=== PATIENT | female | born 1960 | race Two or more races ===

== ENCOUNTER 2025-05-16 06:12 | Inpatient (IN) | payer OTHER, MEDICAID ==
[~2025-05-16] VITALS: Ht 170.2 cm; Wt 100.4 kg
[2025-05-16] VITALS (8 sets, daily range): BP systolic 119–136; BP diastolic 55–77; PULSE 54–87; RESP 18; TEMP 97.3–97.9; O2SAT 97–100
[~2025-05-16 06:12] MED LIST: PERCOT PO
[2025-05-16] MEDS ORDERED: ceFAZolin 2 GM/D5W50ml 50 ML IV ONE (06:29)
[2025-05-16] MEDS ORDERED: VANCOMYCIN HCL 1000 MG VL ONE (06:40)
[2025-05-16] MEDS ORDERED: TRANEXAMIC ACID 20 ML ONE (06:40)
[2025-05-16] MEDS: GABAPENTIN 300 MG CAP PO ONE (07:00)
[2025-05-16] MEDS: ACETAMINOPHEN IV 1000 MG/100ML (10MG/ML) IV ONE (07:00)
[2025-05-16] MEDS: CELECOXIB 100 MG CAP PO ONE (07:00)
[2025-05-16] MEDS ORDERED: CEFEPIME 1GM/ 50ML 50 ML IV ONE (07:00)
[2025-05-16] MEDS ORDERED: PROPOFOL 10 MG/ML 20 ML IV ONE ×3 (07:04→08:32)
[2025-05-16] MEDS ORDERED: GLYCOPYRROLATE 0.2 MG/ML 1ML VIAL ONE ×2 (07:04→08:23)
[2025-05-16] MEDS ORDERED: KETOROLAC TROMETH 30 MG/ML 1ML VIAL ONE (07:05)
[2025-05-16] MEDS ORDERED: LIDOCAINE 1% INJ PF 5ML AMP ONE (07:05)
[2025-05-16] MEDS ORDERED: DexAMETHasone SOD PHOS 10MG/1ML VIAL INJ ONE ×2 (07:05→08:13)
[2025-05-16] MEDS ORDERED: ONDANSETRON HCL 4 MG/2 ML VIAL ONE (07:05)
[2025-05-16] MEDS ORDERED: KETAMINE 50mg/ML 1ml syringe ONE (07:06)
[2025-05-16] MEDS ORDERED: fentaNYL CITRATE 100 MCG/2 ML VL ONE (07:06)
[2025-05-16] MEDS ORDERED: BUPIVACAINE HCL 50 ML ONE (07:09)
[2025-05-16] MEDS ORDERED: ePHEDrine SULFATE 50 MG/ML AMP ONE (07:51)
[2025-05-16] MEDS ORDERED: EPINEPHrine HCL 1 MG/1 ML AMP ONE (08:13)
--- NOTE | 2025-05-16 09:31 | DVHOP2 ---
Operative Report - 2 Report Details Date: 05/16/25 Preop Diagnosis: Left hip degenerative arthritis Postop Diagnosis: Left hip degenerative arthritis Surgeon: Edin Villatoro MD Party Plan Sales Director: Samia KARIMI Anesthesiologist: Seferino Vazquez CRNA Anesthesia: Regional Drains: Piero closed wound suction Implant: Donjoy luisa stem size three, 0 neck length with 32 ceramic head, 48 whit acetabular shell with flat polyethylene liner Consent: The patient was informed of the risks and benefits of the procedure. These incl ude but are not limited to complications of anesthesia, postoperative infection, incomplete relief of symptoms, recurrence of symptoms, damage to blood vessels, nerves and tendons, deep venous thrombosis, pulmonary embolism and possible need for repeat surgery in the future. Complications: None Estimated Blood Loss: 75 cc Fluids: See anesthesia record Findings: Left hip with osteophytes, denuded cartilage and eburnated bone Indications for Surgery: Left hip degenerative arthritis with severe pain and functional impairment despite nonoperative management Name of Procedure Performed Left total hip arthroplasty Procedure Details Procedure Details: The patient was brought to the operating room and given spinal anesthetic with adequate analgesia obtained. The patient was positioned lateral decubitus with the operative side up, stabilized with hip positioners. Axillary roll applied and lower extremities well-padded. Preop patient received IV Ancef, cefepime and IV tranexamic acid. Surgical timeout was performed verifying patient, laterality and procedure. The hip and lower extremity were prepped and draped in sterile fashion. Incision was made over the greater trochanter. Subcutaneous dissection and hemostasis were performed with Bovie and aqua mantis. I identified the fascia which was incised with Bovie and Charnley retractor inserted. I identified the gluteus medius that was split at the junction of its anterior and middle thirds with Bovie then incised off the anterior greater trochanter. I incised the anterior gluteus minimus which was elevated off the capsule. I elevated the reflected head of the rectus. I then performed anterior capsulectomy with Bovie. I extended capsular incision posterior medially and superior laterally. The head was dislocated. Femoral neck cut was made with saw and head removed. Head diameter was calipered on the back table. I adjusted retractors to expose the acetabulum. I circumferentially removed labral tissue with Bovie. I removed foveal tissue with Bovie, curette and rongeur. I then began reaming sequentially paying attention to inclination and version as I went. I trialed which was stable so acetabular implant was brought into the field and tapped into the acetabulum with good fixation achieved. I inserted the central screw. There was quite a bit of inferior and anterior osteophytes which I removed with curved osteotome and rongeur. I then brought up the flat liner which was spun to make sure there was no soft tissue entrapment then tapped in and stability verified. I then brought my attention to the proximal femur. The leg was placed in the sterile bag anteriorly. I cleaned up soft tissue at the greater trochanter shoulder with Bovie. I then used a rongeur to clip the lateral neck. I then used a box osteotome, canal finder and lateralizing rasp. I sequentially broached to size 3. I revised the femoral neck cut with calcar planer. I trialed with a [0] neck length and 32 head which was stable. Intraoperative AP pelvis x-ray was obtained to verify length, offset and implant size. The hip did look long on x- ray. Acetabular cup looked good. The hip was dislocated. Neck and head trial removed. Broach was removed. I then brought up the 2. Broach and tapped it down and again revise femoral neck cut with calcar planer. I trialed and the hip was now stable with a 0 neck length but not the minus four. Broach was removed I tapped in the femoral implant with good fixation achieved. I cleaned and dried the Mcdaniel taper and tapped on the 0 neck length ceramic head. The hip was again reduced and tested for stability which was good. I irrigated with biourge. I placed a 2 grams of vancomycin in the deep and superficial wound. I repaired the minimus and medius to the anterior greater trochanter with #[5] FiberWire in running fashion . I oversewed the repair with 0 Vicryl. I repaired the fascia with #1 Ethibond interrupted [id number]. Deep subcutaneous tissue was closed with 0 Vicryl. Superficial subcutaneous tissue was closed with 2-0 Vicryl. The skin was closed with janet. I then applied the Piero closed wound suction. Patient tolerated the procedure well and was brought to the recovery room in stable condition. Condition Stable Disposition Still a Patient EDIN VILLATORO MD May 16, 2025 09:31
[2025-05-16] MEDS ORDERED: ONDANSETRON HCL 4 MG/2 ML VIAL IV PRN (09:45)
[2025-05-16] MEDS ORDERED: ONDANSETRON HCL 4 MG/2 ML VIAL IV ONE (09:45)
[2025-05-16] MEDS ORDERED: HYDROmorphone HCL 2 MG/ML VL/or syr IV PRN (09:45)
[2025-05-16] MEDS ORDERED: fentaNYL CITRATE 100 MCG/2 ML VL IV PRN (09:45)
[2025-05-16] MEDS ORDERED: hydrALAZINE HCL 20 MG/ML VL IV PRN (09:45)
[2025-05-16] MEDS: oxyCODONE HCL 5MG TAB PO ONE (09:45)
[2025-05-16] MEDS ORDERED: ePHEDrine SULFATE 50 MG/ML AMP IV PRN (09:45)
[2025-05-16] MEDS ORDERED: FLUMAZENIL 0.1 MG/ML INJ 10ML MDV IV PRN (09:45)
[2025-05-16] MEDS ORDERED: NALOXONE HCL 0.4 MG/ML VIAL IV PRN (09:45)
--- NOTE | 2025-05-16 09:47 | DVH ---
CLINICAL INDICATION: SURGERY TECHNIQUE: 65-year-old female with right total hip arthroplasty. XY L HIP 1V XRAY Comparison: None FINDINGS/IMPRESSION: Intraoperative right total hip arthroplasty film with sizing devices in place.
--- NOTE | 2025-05-16 11:48 | DVH ---
CLINICAL INDICATION: postop TECHNIQUE: XY PELVIS AP Comparison: None FINDINGS/IMPRESSION: : There is no evidence of acute fracture or dislocation. Expected findings post left hip arthroplasty. Severe degenerative changes of the right hip.
[2025-05-16] MEDS: SODIUM CHLORIDE 0.9% 1,000 ML IV SCH (12:33)
[2025-05-16] MEDS: KETOROLAC TROMETH 30 MG/ML 1ML VIAL IV SCH (12:36)
[2025-05-16] MEDS: ACETAMINOPHEN 325 MG TAB PO SCH (12:36)
[2025-05-16] MEDS: ceFAZolin 2 GM/D5W50ml 50 ML IV SCH (14:36)
[2025-05-16] MEDS: oxyCODONE HCL 5MG TAB PO PRN (16:26)
[2025-05-16] MEDS: PREGABALIN 25 MG CAP PO SCH (22:31)
[2025-05-17] VITALS (10 sets, daily range): BP systolic 116–150; BP diastolic 53–100; PULSE 68–86; RESP 15–18; TEMP 97.6–99; O2SAT 97–100
[2025-05-17] MEDS: LIDOCAINE 5% TOPICAL PATCH TOP ONE (02:43)
[2025-05-17 06:36] LABS: Anion Gap 9 (5-15); Carbon Dioxide 22 mmol/L (20-31); Potassium 4.1 mmol/L (3.5-5.1); Sodium 141 mmol/L (136-145)
[2025-05-17 06:37] LABS: Calcium 9.6 mg/dL (8.7-10.4)
[2025-05-17 06:42] LABS: BUN/Creatinine Ratio 12.8 (10.0-20.0); Blood Urea Nitrogen 12 mg/dL (9-23); Chloride 110 mmol/L (98-107); Glucose 151 mg/dL (74-106)
[2025-05-17 06:44] LABS: Basophils # (auto) 0 10 ^3/uL (0-0.2); Basophils % (auto) 0.1 % (0.0-2.0); Eosinophils # (auto) 0 10 ^3/uL (0-0.8); Hematocrit 32.9 % (36.0-46.0); Hemoglobin 10.9 g/dL (12.2-16.2); Lymphocytes # (auto) 1.5 10 ^3/uL (0.4-5.4); Lymphocytes % (auto) 10.6 % (10.0-50.0); Mean Corpuscular Hemoglobin 28.9 pg (28.0-32.0); Mean Corpuscular Volume 87.7 fL (80.0-100.0); Monocytes # (auto) 0.9 10 ^3/uL (0-1.3); Monocytes % (auto) 6.6 % (0.0-12.0); Neutrophils # (auto) 11.4 10 ^3/uL (1.6-8.6); Neutrophils % (auto) 82.7 % (37.0-80.0); Nucleated Red Blood Cells % 0.1 %; Platelet Count (auto) 198 10^3/uL (140-450); Red Blood Cells 3.76 10^6/uL (4.0-5.20); Red Cell Distribution Width 13.6 % (11.8-14.3); White Blood Cell 13.8 10^3/uL (4.4-10.8)
--- NOTE | 2025-05-17 07:09 | DVH ---
PROCEDURE: Left hip radiographs. INDICATION: Fall TECHNIQUE: Frontal view of the pelvis and frontal radiographs of the left hip were obtained. COMPARISON: None FINDINGS: There is a left hip replacement the components of which are well aligned and well seated. N o periprosthetic fracture. Right hip joint space narrowing is present. Left hip soft tissue swelling and emphysema likely postsurgical in nature. IMPRESSION: 1. Expected postoperative changes status post left hip replacement. No acute osseous abnormality.
[2025-05-17] MEDS: APIXABAN 2.5 MG TAB PO SCH (08:45)
[2025-05-17] MEDS: oxyCODONE HCL 5MG TAB PO PRN (08:45)
--- NOTE | 2025-05-17 15:11 | DVHDS2 ---
Discharge Summary Date of Admission May 16, 2025 at 11:28 Date of Discharge: May 17, 2025 Labs/Diagnostic Data: Laboratory Results Test 05/17/25 05:08 White Blood Count 13.8 10^3/uL (4.4-10.8) Red Blood Count 3.76 10^6/uL (4.0-5.20) Hemoglobin 10.9 g/dL (12.2-16.2) Hematocrit 32.9 % (36.0-46.0) Mean Corpuscular Volume 87.7 fL (80.0-100.0) Mean Corpuscular Hemoglobin 28.9 pg (28.0-32.0) Mean Corpuscular Hemoglobin Concent 33.0 g/dL (32.0-36.0) Red Cell Distribution Width 13.6 % (11.8-14.3) Platelet Count 198 10^3/uL (140-450) Mean Platelet Volume 8.8 fL (6.9-10.8) Neutrophils (%) (Auto) 82.7 % (37.0-80.0) Lymphocytes (%) (Auto) 10.6 % (10.0-50.0) Monocytes (%) (Auto) 6.6 % (0.0-12.0) Eosinophils (%) (Auto) 0.0 % (0.0-7.0) Basophils (%) (Auto) 0.1 % (0.0-2.0) Neutrophils # (Auto) 11.4 10 ^3/uL (1.6-8.6) Lymphocytes # (Auto) 1.5 10 ^3/uL (0.4-5.4) Monocytes # (Auto) 0.9 10 ^3/uL (0-1.3) Eosinophils # (Auto) 0 10 ^3/uL (0-0.8) Basophils # (Auto) 0 10 ^3/uL (0-0.2) Nucleated Red Blood Cells 0.1 % Sodium Level 141 mmol/L (136-145) Potassium Level 4.1 mmol/L (3.5-5.1) Chloride Level 110 mmol/L (98-107) Carbon Dioxide Level 22 mmol/L (20-31) Anion Gap 9 (5-15) Blood Urea Nitrogen 12 mg/dL (9-23) Creatinine 0.94 mg/dL (0.550-1.02) Glomerular Filtration Rate Calc 68 mL/min (>90) BUN/Creatinine Ratio 12.8 (10.0-20.0) Serum Glucose 151 mg/dL (74-106) Calcium Level 9.6 mg/dL (8.7-10.4) Other Laboratory Tests 05/17/25 05:08 Brief Hx & Hospital Course: Patient was brought to the hospital yesterday to undergo a left total hip arthroplasty, she tolerated the procedure well without complications and was kept overnight for postoperative observation. She has remained medically stable denying any overnight events and reports some postoperative hip pain that is being well managed with the help of pain medication. Patient reports that she was able to get up and walk with the help of physical therapy and her walker and was able to get down the medellin and back to her bed as well as performed a couple of half squats without much discomfort. Patient is otherwise feeling well denying any other complaint or concern during my evaluation and is ready to go home. Condition at Discharge: Stable Final Diagnosis/Problems List Left hip degenerative arthritis Discharge Disposition: Home Discharge Instruct/Medications Diet: Regular Activity: See Comment Activity comment: Patient to remain weight-bearing as tolerated with the assistance of a walker Follow Up/Referral: Patient to follow up in 10-14 days for her 1st postoperative evaluation Medications: Rx sent via our outpatient EMR system Discharge Statement: "Patient was advised to return to the ER or call 911 if any headaches, dizziness, shortness of breath, chest pain, abdominal pain, bleeding, fevers, or worsening of medical condition. Patient was counseled about treatment plan, medications, possible side effects, patientverbalized understanding. All questions were answered to the best of my ability. This discharge took greater then 30 minutes in planning, reviewing documentation, counseling the patient, and discussing with other team members." ASSESSMENT ASSESSMENT Assessment Left hip degenerative arthritis FERNANDO BARTON May 17, 2025 15:11
--- NOTE | 2025-05-17 15:13 | DVHPN2 ---
Progress Note - Dictate Date Seen: May 17, 2025 Medical Necessity Reason Pt with a Central, PICC or Fol: No Subjective Patient was lying comfortably in bed during my evaluation reports some postoperative hip pain that is being well managed with the help of pain medication. Patient reports that she was able to get up and walk with the help of physical therapy and her walker and was able to get down the medellin and back to her room with only mild pain. Patient also reports that she has perform some half squats as well as gotten up and dress herself without much issue. Patient is otherwise feeling well denying any other complaint or concern during my evaluation and is ready to go home. vital signs Vital Sign Date Time Temp Pulse Resp B/P (MAP) Pulse Ox O2 Delivery O2 Flow Rate FiO2 05/17/25 09:00 99.0 82 16 131/75 (93) 98 99.0 05/17/25 08:00 Room Air* 0 21 Total Intake and Output 05/16/25 05/16/25 05/17/25 15:00 23:00 07:00 Intake Total 1000 ml 400 ml Output Total 200 ml Balance 800 ml 400 ml medications Current Medications Medications Dose Ordered Sig/Kirill Route Start Time Stop Time Status Last Admin Dose Admin Pregabalin 50 mg BID PO 05/16/25 10:00 05/17/25 09:05 50 MG Apixaban 2.5 mg BID PO 05/17/25 10:00 06/21/25 09:59 05/17/25 08:45 2.5 MG Sodium Chloride 1,000 ml @ 125 mls/hr Q8H IV 05/16/25 11:30 05/17/25 09:02 125 MLS/HR Acetaminophen 650 mg Q6HP PO 05/16/25 12:00 05/17/25 11:43 650 MG Ketorolac Tromethamine 15 mg Q6HR IV 05/16/25 12:00 05/21/25 11:59 05/17/25 11:43 15 MG Ondansetron HCl 4 mg Q4HP PRN IV 05/16/25 09:45 Oxycodone HCl 5 mg Q4HP PRN PO 05/16/25 11:30 05/17/25 08:45 5 MG Oxycodone HCl 10 mg Q4HP PRN PO 05/16/25 11:30 05/17/25 03:53 10 MG Lidocaine 1 patch DAILY@2200 TOP 05/17/25 22:00 objective A&O x4 in no acute distress Hip range of motion grossly limited with pain on movement Piero dressing clean, dry, intact, and maintaining suction No distal edema or calf tenderness to palpation Neurovascularly intact with cap refill less than 2 seconds laboratory and microbiology Laboratory Tests 05/17/25 05:08 Test 05/17/25 05:08 Range/Units Serum Glucose 151 H 74-106 mg/dL Assessment/Plan Patient to be discharged home and advised to remain weight-bearing as tolerated with the assistance of a walker. I also instructed patient to follow up with our office in 10-14 days for her 1st postoperative evaluation. Rx sent via our outpatient EMR system. I advised the patient to maintain her dressings clean, dry, intact, and maintaining suction and may call our office if she has any questions or concerns. She understood and agreed. Thank you for allowing us to participate in the care of your patient. Plan discussed with: Patient FERNANDO BARTON May 17, 2025 15:13
[2025-05-17] MEDS ORDERED: LIDOCAINE 5% TOPICAL PATCH TOP SCH (22:00)
== END 2025-05-17 20:00 | disposition home or self-care (01) | DRG 470 ==
LOC: SUR 06:12 → EAST 11:28
PROVIDERS: ADMIT Orthopaedic Surgery; ATTEND Orthopaedic Surgery
PROC: 0SRB04A Replacement of Left Hip Joint with Ceramic on Polyethylene Synthetic Substitute, Uncemented, Open Approach (ICD-10-PCS; principal; 2025-05-16 07:23)
DX: M16.12 Unilateral primary osteoarthritis, left hip (principal); M25.752 Osteophyte, left hip; Z96.642 Presence of left artificial hip joint
CPT/HCPCS: 36415; 72170; 73501; 73502; 80048; 85025; 86850; 86900; 86901; 97110; 97116; 97163; G0378; J0171; J1100; J1885; J2405; J2704; J3490